=== PATIENT | male | born 2000 | race Caucasian/White ===

== ENCOUNTER 2023-09-06 08:35 | Emergency (ER) | payer SELFPAY ==
[2023-09-06] MEDS: Diphtheria,Pertussis(Acell),Tetanus Vaccine 0.5 ML Syringe IM ONE (09:27)
[2023-09-06] MEDS: Octyl 2-Cyanoacrylate 1 g/1 mL 1 APPLIC PEN ONE (10:30)
== END 2023-09-06 10:55 | disposition home or self-care (01) ==
LOC: MW.ED 08:35
DX: S01.01XA Laceration without foreign body of scalp, initial encounter (principal); F17.210 Nicotine dependence, cigarettes, uncomplicated; Z23 Encounter for immunization; Z75.8 Other problems related to medical facilities and other health care; W01.0XXA Fall on same level from slipping, tripping and stumbling without subsequent striking against object, initial encounter
CPT/HCPCS: 90471; 90715; 99282; A9270; 99283

== ENCOUNTER 2023-10-15 10:37 | Emergency (ER) | payer SELFPAY ==
[2023-10-15] MEDS: traMADol 50 MG Tab PO STA (13:25)
[2023-10-15] MEDS: Acetaminophen 500 MG Tab PO STA (13:32)
[2023-10-15] MEDS: Ketorolac 10 MG Tab PO STA (13:33)
== END 2023-10-15 13:50 ==
LOC: MW.ED 10:37
DX: M65.841 Other synovitis and tenosynovitis, right hand (principal); Z75.8 Other problems related to medical facilities and other health care
CPT/HCPCS: 99284; A9270; 99283

== ENCOUNTER 2024-02-01 05:16 | Emergency (ER) | payer SELFPAY ==
[2024-02-01] MEDS: Bupivacaine 0.5% 10 ML SDV INFILT ONE (05:33)
[2024-02-01] MEDS: Ketorolac 30 MG/ML SDV IM ONE (05:33)
[2024-02-01] MEDS: Acetaminophen 500 MG Tab PO ONE (05:34)
== END 2024-02-01 05:53 | disposition home or self-care (01) ==
LOC: MW.ED 05:16
DX: K02.9 Dental caries, unspecified (principal); Z79.2 Long term (current) use of antibiotics; Z79.899 Other long term (current) drug therapy
CPT/HCPCS: 64400; 96372; 99282; A9270; J0665; J1885